=== PATIENT | male | born 1980 | race Native Hawaiian/Other Pacific Islander ===

== ENCOUNTER 2020-05-15 06:58 | Emergency (ER) | payer OTHER ==
[~2020-05-15] VITALS: Ht 180.3 cm; Wt 70.3 kg
[2020-05-15 07:00] VITALS: TEMP 97.5
[2020-05-15 08:10] VITALS: BP 136/70
== END 2020-05-15 08:10 | disposition home or self-care (01) ==
LOC: ED 06:58
DX: H16.133 Photokeratitis, bilateral (principal); W89.8XXA Exposure to other man-made visible and ultraviolet light, initial encounter; Y92.89 Other specified places as the place of occurrence of the external cause
CPT/HCPCS: 99283

== ENCOUNTER 2020-08-15 17:05 | Emergency (ER) | payer OTHER | END 2020-08-15 18:25 | disposition home or self-care (01) | LOC: ED 17:05 | DX: K04.7 Periapical abscess without sinus (principal) | CPT/HCPCS: 96372; 99283; J0696; J1885 ==